=== PATIENT | male | born 1965 | race African-American/Black ===

== ENCOUNTER 2017-07-23 22:04 | Emergency (ER) | payer MEDICAID ==
[~2017-07-23] VITALS: Ht 177.8 cm; Wt 82.0 kg
[~2017-07-23 22:04] MED LIST: MOTRIN
[2017-07-24] MEDS ORDERED: HYDROCODONE/ACETAMINOPHEN 10/325MG TABLET PO ONE (02:30)
[2017-07-24] MEDS ORDERED: ONDANSETRON 4MG ODT PO ONE (02:30)
[2017-07-24 03:00] VITALS: BP 145/81
== END 2017-07-24 04:45 | disposition home or self-care (01) ==
LOC: ER 22:13
DX: S22.41XA Multiple fractures of ribs, right side, initial encounter for closed fracture (principal); F12.10 Cannabis abuse, uncomplicated; V00.131A Fall from skateboard, initial encounter; Y93.51 Activity, roller skating (inline) and skateboarding; Y92.89 Other specified places as the place of occurrence of the external cause; Y99.8 Other external cause status
CPT/HCPCS: 71250; 99284; Q0162; Z7610